=== PATIENT | male | born 1990 | race Caucasian/White ===

== ENCOUNTER 2018-12-18 17:35 | Emergency (ER) | payer OTHER ==
[~2018-12-18] VITALS: Ht 180.3 cm; Wt 100.5 kg
[2018-12-18 17:39] VITALS: Ht 180.3 cm; Wt 100.5 kg
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
[2018-12-18] MEDS ORDERED: ALBU8.5H8 INH (22:01)
[2018-12-18 22:29] VITALS: BP 133/75; PULSE 63; RESP 18
== END 2018-12-18 22:30 | disposition home or self-care (01) ==
LOC: FTE 17:35
DX: J98.01 Acute bronchospasm (principal)
CPT/HCPCS: 99283